=== PATIENT | female | born 1995 | race African-American/Black ===

== ENCOUNTER 2018-06-19 01:23 | Emergency (ER) | payer SELFPAY ==
[~2018-06-19] VITALS: Ht 167.6 cm; Wt 59.0 kg
[2018-06-19 01:26] VITALS: BP 124/84
== END 2018-06-19 04:00 | disposition left against medical advice (07) ==
LOC: ER 01:23
DX: O26.891 Other specified pregnancy related conditions, first trimester (principal); R10.817 Generalized abdominal tenderness; R11.2 Nausea with vomiting, unspecified; Z3A.01 Less than 8 weeks gestation of pregnancy; Z53.21 Procedure and treatment not carried out due to patient leaving prior to being seen by health care provider
CPT/HCPCS: 82962